=== PATIENT | female | born 1990 | race Two or more races ===

== ENCOUNTER 2025-04-01 18:58 | Emergency (ER) | payer MEDICAID, OTHER ==
[~2025-04-01] VITALS: Ht 154.9 cm; Wt 58.5 kg
[2025-04-01 19:03] VITALS: BP 128/80; PULSE 107; RESP 16; TEMP 98.8; O2SAT 99
[2025-04-01] MEDS ORDERED: AUG875T PO (20:22)
[2025-04-01] MEDS ORDERED: METH4PAK PO (20:22)
[2025-04-01] MEDS ORDERED: PROM1SOL4 PO (20:22)
--- NOTE | 2025-04-01 20:22 | ED.PDOC ---
Eye-HPI HPI Comments PT PRESENTED TO ED FOR FLU-LIKE S/S: RUNNY NOSE, COUGH, CONGESTION, NAUSEA X3 DAYS denies chest pain, difficulty breathing, shortness breath, or recent travel. Chief Complaint: Flu like Time Seen by MD: 19:08 Reviewed Notes: Nurses Notes, Medications, Allergies Allergies: Coded Allergies: No Known Drug Allergy (Verified Allergy, Unknown, 04/01/25) Home Meds Active Scripts Promethazine-Dm (Promethazine Dm 6.25-15 mg/5Ml) 1 Ana Ana, 5 ML PO TID for 5 Days, #75 ML Prov:HOLLY CASTRO [employer]MER 04/01/25 Methylprednisolone (Medrol Dosepak) 4 Mg Clint, 4 MG PO UD for 6 Days, #21 TAB UAD Prov:HOLLY CASTRO [employer]IMMER 04/01/25 Amoxicillin & Pot Clavulanate (AUGMENTIN TABLET) 875 Mg Tb, 875 MG PO BID for 7 Days, #14 TAB Prov:HOLLY CASTRO [employer]IMMER 04/01/25 Information Source: Patient Mode of Arrival: Ambulatory Past Medical History PAST MEDICAL HISTORY: Denies Surgical History: Denies all surgeries REPA[employer] History: No Pertinent REPA[employer] History Social History Smoker: Non-Smoker Alcohol: Denies ETOH Use Drugs: Denies Drug Use All Other Systems: Reviewed and Negative (see hpi) Physical Exam General Appearance: No Apparent Distress, Normal HEENT: Pharyngeal Erythema, TMs Normal Neck: Full Range of Motion, Non-Tender Respiratory: Lungs Clear, No Respiratory Distress, Normal Breath Sounds Cardiovascular: No Edema, No JVD, No Murmur, No Gallop, Normal Peripheral Pulses, Regular Rate/Rhythm Breast Exam: Deferred Gastrointestinal: No Organomegaly, Non Tender, No Pulsatile Mass, Normal Bowel Sounds, Soft Genitalia: Deferred Pelvic: Deferred Rectal: Deferred Extremities: Normal capillary refill, Normal inspection, Normal range of motion, Non-tender, No pedal edema Musculoskeletal : Apperance: Normal Neurologic: Alert, No Motor Deficits, Normal Affect, Normal Mood, No Sensory Deficits Cerebellar Function: Normal Reflexes: NOT DONE Skin: Dry, Normal Color, Warm Lymphatic: No Adenopathy Was a procedure done? Was a procedure done?: No EENT DIFF Eye: N/A Ear: Otitis Media, Pharyngitis, Sinusitis Sore Throat: Peritonsillar Abscess, Peritonsillar Cellulitis, Pharyngitis, Streptococcal, Viral Pharyngitis, URI X-Ray, Labs, Meds, VS Vital Signs Date Time Temp Pulse Resp B/P (MAP) Pulse Ox O2 Delivery O2 Flow Rate FiO2 04/01/25 19:03 98.8 107 16 128/80 99 98.8 X-Ray, Labs, Meds, VS Comment Likely infected. Script trial of antibiotics and steroid. Advised to take medication as prescribed side effects discussed. Advised to rest increase p.o. fluids with electrolytes. Follow up with your PCP in three days if no improvement. ER return precautions given patient indicates understanding and agrees with discharge plan of care. Time of 1ST Reevaluation: 19:08 Reevaluation 1ST: Unchanged Time of 2ND Reevaluation: 20:22 Reevaluation 2ND: Improved Patient Education/Counseling: Diagnosis, Treatment, Need For Follow Up Family Education/Counseling: No Family Present SEPSIS Sepsis Screen Date sepsis recognized/suspect: Apr 01, 2025 Time Sepsis recognized/suspect: 1904 Recent Procedure: No On Antibiotic Therapy: No Respiratory Rate >20: No Heart Rate >90: No Temp<36 C (96.8 F) or >38.3 C: No SBP <90 or MAP <65 mmHG: No New Acute Mental Status Change: No Is the patient on CPAP, BIPAP,: No Vital Signs Date Time Temp Pulse Resp B/P (MAP) Pulse Ox O2 Delivery O2 Flow Rate FiO2 04/01/25 19:03 98.8 107 16 128/80 99 98.8 Departure 1 Departure Time of Disposition: 20:19 Impression: Primary Impression: URI (upper respiratory infection) Qualified Codes: J06.9 - Acute upper respiratory infection, unspecified Disposition: HOME / SELF CARE / HOMELESS Condition: Stable e-Prescriptions Promethazine-Dm (Promethazine Dm 6.25-15 mg/5Ml) 1 Ana Ana 5 ML PO TID for 5 Days, #75 ML Prov: HOLLY CASTRO 04/01/25 Methylprednisolone (Medrol Dosepak) 4 Mg Clint 4 MG PO UD for 6 Days, #21 TAB UAD Prov: HOLLY CASTRO 04/01/25 Amoxicillin & Pot Clavulanate (AUGMENTIN TABLET) 875 Mg Tb 875 MG PO BID for 7 Days, #14 TAB Prov: HOLLY CASTRO 04/01/25 Discharged With: Self Critical Care Note Critical Care Time?: No Stability Stability form required: No HOLLY CASTRO Apr 01, 2025 20:22
== END 2025-04-01 20:27 | disposition home or self-care (01) ==
LOC: ER 18:58
DX: J06.9 Acute upper respiratory infection, unspecified (principal)